=== PATIENT | female | born 1985 | race Caucasian/White ===

== ENCOUNTER 2018-10-06 23:00 | Emergency (ER) | payer OTHER ==
[~2018-10-06] VITALS: Ht 170.2 cm; Wt 115.0 kg
[2018-10-06 23:04] VITALS: BP 136/74
== END 2018-10-07 00:39 | disposition home or self-care (01) ==
LOC: ED 10-07 00:31
DX: N75.1 Abscess of Bartholin's gland (principal)
CPT/HCPCS: 99283